=== PATIENT | female | born 1965 | race Caucasian/White ===

== ENCOUNTER → 2017-11-14 | Outpatient (REF) | payer OTHER ==
[2017-11-16 10:43] LABS: TISSUE TRANSGLUTAMINASE IgA <2 U/mL (0-3)
== END ==
LOC: M LAB REF 17:26
DX: E55.9 Vitamin D deficiency, unspecified (principal)

== ENCOUNTER → 2018-03-26 | Outpatient (REF) | payer OTHER | LOC: M LAB REF 12:22 | DX: J02.9 Acute pharyngitis, unspecified (principal) ==

== ENCOUNTER → 2018-07-11 | Outpatient (REF) | payer OTHER ==
[2018-07-12 14:47] LABS: FOLLICLE STIMULATING HORMONE 30.3 mIU/mL; LUTEINIZING HORMONE 36.4 mIU/mL
== END ==
LOC: M LAB REF 13:46
PROVIDERS: ATTEND Internal Medicine
DX: N91.2 Amenorrhea, unspecified (principal)

== ENCOUNTER 2018-10-29 02:58 | Emergency (ER) | payer OTHER ==
[~2018-10-29] VITALS: Ht 167.6 cm; Wt 131.8 kg
[2018-10-29 02:59] VITALS: BP 195/117
[2018-10-29] MEDS ORDERED: CLEO300C2 PO (03:29)
[2018-10-29] MEDS ORDERED: CLINDAMYCIN 150 MG CAP PO ONE (03:30)
== END 2018-10-29 03:40 | disposition home or self-care (01) ==
LOC: M ED 02:58
DX: J02.9 Acute pharyngitis, unspecified (principal); Z87.442 Personal history of urinary calculi; Z88.0 Allergy status to penicillin; Z88.1 Allergy status to other antibiotic agents; Z88.2 Allergy status to sulfonamides

== ENCOUNTER → 2018-11-16 | Outpatient (REF) | payer OTHER ==
[~2018-11-16] MED LIST: CLEO300C2 PO
[2018-11-16 13:30] LABS: AMYLASE 28 U/L (25-115); LIPASE 93 U/L (73-393)
== END ==
LOC: M LAB REF 12:25
PROVIDERS: ATTEND Nurse Practitioner Family
DX: R10.9 Unspecified abdominal pain (principal)

== ENCOUNTER → 2019-05-10 | Outpatient (REF) | payer OTHER ==
[2019-05-15 00:06] LABS: L. PNEUMOPHILA (1,3,4,5,6,8) <0.91 OD ratio (0.00-0.90)
== END ==
LOC: M LAB REF 13:35
PROVIDERS: ATTEND Internal Medicine
DX: M06.9 Rheumatoid arthritis, unspecified (principal); R05 Cough; J45.41 Moderate persistent asthma with (acute) exacerbation

== ENCOUNTER → 2019-12-04 | Outpatient (REF) | payer OTHER | LOC: M LAB REF 11:15 | PROVIDERS: ATTEND Surgery | DX: L72.3 Sebaceous cyst (principal) ==

== ENCOUNTER → 2020-05-25 | Outpatient (REF) | payer OTHER | LOC: M LAB REF 12:01 | PROVIDERS: ATTEND Internal Medicine | DX: Z20.828 Contact with and (suspected) exposure to other viral communicable diseases (principal) ==

== ENCOUNTER → 2020-06-15 | Outpatient (CLI) | payer OTHER ==
[2020-06-15 13:56] LABS: BASO % 0.9 % (0.0-1.0); EOS # 0.2 10^3/uL (0.0-0.5); EOS % 3.7 % (0.0-3.0); HEMATOCRIT 40.9 % (36.0-47.0); HEMOGLOBIN 13.4 g/dl (12.0-15.5); LYMPH # 1.4 10^3/uL (1.5-5.0); LYMPH % 31.7 % (24.0-44.0); MEAN CORPUSCULAR HEMOGLOBIN 30.8 pg (27.0-33.0); MEAN CORPUSCULAR HGB CONC 32.8 g/dl (32.0-36.5); MONO # 0.3 10^3/uL (0.0-0.8); NEUTROPHILS # 2.5 10^3/uL (1.5-8.5); NEUTROPHILS % 57.5 % (36.0-66.0); PLATELET COUNT, AUTOMATED 252 10^3/uL (150-450); RED BLOOD COUNT 4.35 10^6/uL (4.00-5.40); WHITE BLOOD COUNT 4.4 10^3/uL (4.0-10.0)
[2020-06-15 14:29] LABS: ALBUMIN 3.6 GM/DL (3.2-5.2); ALT/SGPT 24 U/L (12-78); C REACTIVE PROTEIN QUANTITATIV < 0.30 MG/DL (0.00-0.30); CREATININE FOR GFR 0.79 MG/DL (0.55-1.30); GLOMERULAR FILTRATION RATE > 60.0 (>51)
[2020-06-15 14:44] LABS: HEPATITIS B SURFACE ANTIGEN NEGATIVE (NEGATIVE)
[2020-06-15 15:13] LABS: HEPATITIS C VIRUS ABY INDEX 0.1 INDEX (<0.8)
[2020-06-15 21:17] LABS: ERYTHROCYTE SEDIMENTATION RATE 13 mm/hr (0-30)
== END ==
LOC: M LAB 12:49
PROVIDERS: ATTEND Nurse Practitioner Family
DX: M05.79 Rheumatoid arthritis with rheumatoid factor of multiple sites without organ or systems involvement (principal); Z79.899 Other long term (current) drug therapy

== ENCOUNTER → 2020-09-29 | Outpatient (CLI) | payer OTHER ==
--- NOTE | 2020-09-30 10:32 | REPVR ---
PROCEDURE INFORMATION: Exam: CT Maxillofacial Without Contrast Exam date and time: 09/29/2020 5:10 PM Age: 55 years old Clinical indication: Nasal congestion; Additional info: Deviated septum TECHNIQUE: Imaging protocol: Computed tomography images of the face without contrast. Radiation optimization: All CT scans at this facility use at least one of these dose optimization techniques: automated exposure control; mA and/or kV adjustment per patient size (includes targeted exams where dose is matched to clinical indication); or iterative reconstruction. COMPARISON: No relevant prior studies available. FINDINGS: Orbital cavity: The globes appear grossly intact, and no definite intraorbital hematoma is identified. Bones/joints: There is leftward deviation of the nasal septum measuring up to 7 mm. The temporomandibular joints are normally aligned. The orbital floors and lamina papyracea are intact. No acute fracture is identified. Paranasal sinuses: The ostiomeatal units are patent. Minor chronic mucosal disease involves the left maxillary sinus. The right is clear. Mastoid air cells: The mastoid air cells are clear. Soft tissues: Unremarkable. Brain: The visualized intracranial structures appear grossly unremarkable. IMPRESSION: 1. Leftward deviation of the nasal septum. 2. 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 Electronically signed by: Karson Odonnell On 09/30/2020 10:32:34 AM
== END ==
LOC: M RAD 17:00
PROVIDERS: ATTEND Specialist
DX: J30.1 Allergic rhinitis due to pollen (principal); J34.2 Deviated nasal septum

== ENCOUNTER → 2020-12-17 | Outpatient (REF) | payer OTHER | LOC: M LAB REF 11:14 | PROVIDERS: ATTEND Internal Medicine | DX: N39.0 Urinary tract infection, site not specified (principal) ==

== ENCOUNTER 2021-03-17 13:20 | Outpatient (CLI) | payer OTHER ==
[~2021-03-17] VITALS: Ht 167.6 cm; Wt 126.0 kg
[~2021-03-17 13:20] MED LIST changes: +ACETAMINOPHEN TAB 650MG DOSE (2X325MG) PO ONE; +ALBUTEROL 90 MCG/ACT 8GM HFA INHALER INH PRN; +ALBUTEROL SULFATE 2.5 MG/0.5 ML INH NEB SOLN INH PRN; +CASIRIVIMAB/IMDEVIMAB 1,200 MG in NS 250 ML IV ONE; +EPINEPHrine INJ 1 MG/ML 1ML AMP IM PRN; +NS 1,000 ML IV SCH; +diphenhydrAMINE 50MG CAP PO ONE; +diphenhydrAMINE 50MG/ML VIAL (J1200) IV PRN; +methylPREDNISolone 125MG 2ML VIAL IV PRN
[2021-03-17 14:37] VITALS: BP 136/66
[2021-03-17 15:07] VITALS: BP 137/64
[2021-03-17 15:37] VITALS: BP 154/72
[2021-03-17 16:37] VITALS: BP 133/75
== END 2021-03-17 16:37 | disposition home or self-care (01) ==
LOC: M OPCLI4PR 13:20
PROVIDERS: ATTEND Internal Medicine
DX: U07.1 COVID-19 (principal); Z88.0 Allergy status to penicillin; Z88.2 Allergy status to sulfonamides

== ENCOUNTER → 2021-06-29 | Outpatient (CLI) | payer OTHER ==
[~2021-06-29] MED LIST changes: -ACETAMINOPHEN TAB 650MG DOSE (2X325MG) PO ONE; -ALBUTEROL 90 MCG/ACT 8GM HFA INHALER INH PRN; -ALBUTEROL SULFATE 2.5 MG/0.5 ML INH NEB SOLN INH PRN; -CASIRIVIMAB/IMDEVIMAB 1,200 MG in NS 250 ML IV ONE; -EPINEPHrine INJ 1 MG/ML 1ML AMP IM PRN; -NS 1,000 ML IV SCH; -diphenhydrAMINE 50MG CAP PO ONE; -diphenhydrAMINE 50MG/ML VIAL (J1200) IV PRN; -methylPREDNISolone 125MG 2ML VIAL IV PRN
== END ==
LOC: M RAD 11:40
PROVIDERS: ATTEND Physician Assistant
DX: R07.9 Chest pain, unspecified (principal); R05.9 Cough, unspecified; M54.59 Other low back pain

== ENCOUNTER → 2021-07-05 | Outpatient (REF) | payer OTHER | LOC: M LAB REF 16:35 | PROVIDERS: ATTEND Internal Medicine | DX: M06.9 Rheumatoid arthritis, unspecified (principal); R06.02 Shortness of breath; R05.9 Cough, unspecified ==

== ENCOUNTER → 2021-07-12 | Outpatient (CLI) | payer OTHER | LOC: M RAD 15:39 | PROVIDERS: ATTEND Internal Medicine | DX: R06.02 Shortness of breath (principal); R50.9 Fever, unspecified ==

== ENCOUNTER → 2021-12-23 | Outpatient (REF) | payer OTHER | LOC: M LAB REF 16:24 | PROVIDERS: ATTEND Internal Medicine | DX: N39.0 Urinary tract infection, site not specified (principal) ==

== ENCOUNTER → 2022-09-01 | Outpatient (CLI) | payer OTHER | LOC: M WUC 10:21 | PROVIDERS: ATTEND Nurse Practitioner Adult Health | DX: R05.9 Cough, unspecified (principal) ==

== ENCOUNTER → 2022-10-12 | Outpatient (CLI) | payer OTHER | LOC: M WUC 15:23 | PROVIDERS: ATTEND Internal Medicine | DX: R05.9 Cough, unspecified (principal) ==

== ENCOUNTER → 2023-03-29 | Outpatient (REF) | payer OTHER | LOC: M LAB REF 11:32 | PROVIDERS: ATTEND Nurse Practitioner Family | DX: J02.0 Streptococcal pharyngitis (principal) ==

== ENCOUNTER → 2023-05-16 | Outpatient (CLI) | payer OTHER | LOC: M PLAIMG 11:08 | PROVIDERS: ATTEND Internal Medicine | DX: R05.1 Acute cough (principal) ==

== ENCOUNTER → 2024-01-24 | Outpatient (REF) | payer OTHER | LOC: M LAB REF 16:09 | PROVIDERS: ATTEND Physician Assistant Medical | DX: M79.605 Pain in left leg (principal) ==

== ENCOUNTER → 2024-01-25 | Outpatient (CLI) | payer OTHER | LOC: M RAD 08:31 | PROVIDERS: ATTEND Physician Assistant Medical | DX: I87.8 Other specified disorders of veins (principal) ==

== ENCOUNTER → 2024-04-10 | Outpatient (CLI) | payer OTHER | LOC: M RAD 14:08 | PROVIDERS: ATTEND Physician Assistant | DX: I80.02 Phlebitis and thrombophlebitis of superficial vessels of left lower extremity (principal) ==

== ENCOUNTER → 2025-04-18 | Outpatient (REF) | payer OTHER | LOC: M LAB REF 12:15 | PROVIDERS: ATTEND Internal Medicine | DX: R63.5 Abnormal weight gain (principal) ==